=== PATIENT | female | born 1980 | race Caucasian/White ===

== ENCOUNTER 2021-01-12 16:19 | Emergency (ER) | payer SELFPAY ==
[2021-01-12] MEDS ORDERED: IBUPROFEN 600 MG TABLET (FP) PO ONE ×2 (16:26→16:31)
[2021-01-12 16:27] VITALS: BP 117/74; PULSE 89; TEMP 98.7; BMI 26.5
== END 2021-01-12 17:36 | disposition home or self-care (01) ==
LOC: FER 16:19
DX: S82.201A Unspecified fracture of shaft of right tibia, initial encounter for closed fracture (principal); V00.211A Fall from ice-skates, initial encounter
CPT/HCPCS: 73590-TC-RT-FY; 99283-25